=== PATIENT | male | born 1995 | race Caucasian/White ===

== ENCOUNTER 2018-02-06 02:26 | Emergency (ER) | payer SELFPAY ==
[~2018-02-06] VITALS: Ht 172.7 cm; Wt 113.6 kg
[2018-02-06] MEDS ORDERED: HALOPERIDOL LACTATE 5MG/ML VIAL IM ONE ×2 (03:23→03:30)
[2018-02-06 03:42] VITALS: BP 142/88
== END 2018-02-06 04:29 | disposition left against medical advice (07) ==
LOC: ER 02:26
DX: F30.2 Manic episode, severe with psychotic symptoms (principal); R45.851 Suicidal ideations; R45.1 Restlessness and agitation; Z78.1 Physical restraint status; R03.0 Elevated blood-pressure reading, without diagnosis of hypertension
CPT/HCPCS: 99283; J1630